=== PATIENT | female | born 1990 ===

== ENCOUNTER 2019-01-24 12:58 | Emergency (ER) | payer BC, OTHER ==
[2019-01-24 13:28] VITALS: BP 95/62
--- NOTE | 2019-01-24 13:56 | ED ---
HPI Chest Pain - HPI Summary HPI Summary: 28 yr old with right side rib pain. Pain worse with moving and coughing. The patient had onset of pain on Monday this week during a coughing spell. She had runny nose and cough for two days prior to this. Her pain is moderate. She states it is hard to sleep due to laying on ribs hurts. She denies leg pain, denies long trips. - History of Current Complaint Chief Complaint: UCRespiratory Time Seen by Provider: 01/24/19 13:40 Hx Last Menstrual Period: unknown Pain Intensity: 5 - Allergy/Home Medications Allergies/Adverse Reactions: Allergies Allergy/AdvReac Type Severity Reaction Status Date / Time No Known Allergies Allergy Verified 01/24/19 13:21 Home Medications: Home Medications Acetaminophen [Acetaminophen Extra Strength] 1,000 mg PO Q6H PRN 01/24/19 [ History Confirmed 01/24/19] Essure 1 applic ONCE 01/24/19 [History] Ibuprofen TAB* [Advil TAB*] 800 mg PO Q6H PRN 01/24/19 [History Confirmed ] PMH/Surg Hx/FS Hx/Imm Hx Infectious Disease History: No Infectious Disease History: Denies: Traveled Outside the [place] in Last 30 Days - Family History Known Family History: Positive: None - Social History Alcohol Use: Occasionally Substance Use Type: Reports: None Smoking Status (MU): Heavy Every Day Tobacco Smoker Type: Cigarettes Amount Used/How Often: 1 ppd Review of Systems Constitutional: Negative Positive: Chest Pain - with cough and moving. Positive: Cough All Other Systems Reviewed And Are Negative: Yes Physical Exam Triage Information Reviewed: Yes Vital Signs On Initial Exam: Initial Vitals Temp Pulse Resp BP Pulse Ox 99.3 F 68 16 95/62 100 01/24/19 13:23 01/24/19 13:23 01/24/19 13:23 01/24/19 13:23 01/24/19 13:23 Vital Signs Reviewed: Yes Appearance: Positive: Well-Appearing, No Pain Distress Skin: Positive: Skin Color Reflects Adequate Perfusion Head/Face: Positive: Normal Head/Face Inspection Eyes: Positive: EOMI, YAMILE ENT: Positive: Normal ENT inspection Neck: Positive: Nontender Respiratory/Lung Sounds: Positive: Clear to Auscultation, Breath Sounds Present , Other - tender right side chest wall mid axillary line about ribs 4,5,6,7 Cardiovascular: Positive: RRR. Negative: Murmur Abdomen Description: Positive: Nontender Musculoskeletal: Positive: Strength/ROM Intact Neurological: Positive: Sensory/Motor Intact, Alert, Oriented to Person Place, Time, CN Intact II-III, Normal Gait, Speech Normal Psychiatric: Positive: Normal Diagnostics - Vital Signs Vital Signs Temp Pulse Resp BP Pulse Ox 01/24/19 13:23 99.3 F 68 16 95/62 100 - Laboratory Lab Statement: Any lab studies that have been ordered have been reviewed, and results considered in the medical decision making process. - Radiology chest and right ribs Radiology Interpretation Completed By: Radiologist - nad Chest Pain Course/Dx - Course Course Of Treatment: 28 yr old female with rib pain after coughing hard. chest wall strain. Motrin. DC home. - Diagnoses Provider Diagnoses: Intercostal muscle strain Discharge ED - Sign-Out/Discharge Documenting (check all that apply): Patient Departure All imaging exams completed and their final reports reviewed: Yes - Discharge Plan Condition: Good Disposition: HOME Prescriptions: Ibuprofen TAB* [Motrin TAB* 600 MG] 600 mg PO Q6H PRN #20 tab PRN Reason: Pain - Mild Patient Education Materials: Chest Wall Pain (ED) Forms: *Work Release Referrals: Avery BANGURA,Dori [Primary Care Provider] - 2 Days - Billing Disposition and Condition Condition: GOOD Disposition: Home
== END 2019-01-24 14:30 | disposition home or self-care (01) ==
LOC: UCCORT 12:58
DX: S29.011A Strain of muscle and tendon of front wall of thorax, initial encounter (principal); X58.XXXA Exposure to other specified factors, initial encounter; Y92.9 Unspecified place or not applicable; R05 Cough; F17.210 Nicotine dependence, cigarettes, uncomplicated
CPT/HCPCS: 99202; G0463